=== PATIENT | female | born 1995 | race Caucasian/White ===

== ENCOUNTER 2019-11-24 10:05 | Emergency (ER) | payer OTHER, SELFPAY ==
[2019-11-24 10:13] VITALS: BP 126/71; PULSE 76; RESP 16; TEMP 36.7; O2SAT 98
--- NOTE | 2019-11-24 10:23 | W.ED.GENAD ---
Discharge Plan Disposition Patient Disposition: HOME Condition: Stable Discharge Details Chief Complaint: Orthopedic Clinical Impression: Left knee sprain Primary Care Provider: Ana Carranza ED Provider: Di Alva Home Meds and New Rx's Prescriptions: Continued citalopram 20 mg Tablet 20 mg PO DAILY RF: 0 trazodone 150 mg Tablet 150 mg PO HS RF: 0 medroxyprogesterone [Depo-Provera] 150 mg/mL Suspension IM RF: 0 Discharge Instructions Instructions: Knee Sprain (ED) Additional Instructions: Rest, ice and elevate your left knee as much as possible. Alternate tylenol and motrin as needed and directed for pain. Follow-up with your primary care doctor in 2 weeks for reevaluation if symptoms persist or worsen for consideration for physical therapy or MRI of your left knee. Return to the emergency department with any worsening or new concerning symptoms. Stand Alone Forms: Work Release Discharge Data Discharge Date/Time-TO BE ENTERED AT DEPARTURE: 11/24/19 11:06 Discharge Physician: Di Alva Medical Decision Making 23-year-old female presents with left posterior knee pain after hearing and feeling a pop in her left knee while doing jumping jacks yesterday. States she is here for evaluation and for a note stating she is cleared to return to light duty as she is in the [employer] and would like to return today. She has pain with range of motion, particularly left posterior knee. There is no ligamentous laxity. There is no evidence of trauma or cellulitis. She is neurovascular intact. Discussed with patient that history and presentation appears most consistent with knee sprain/strain. Patient was offered an x-ray but she declines. She was given a work note for light duty for the next 10 days. Advised on the importance of rest, ice, elevate and compression. Advised to follow-up with a primary care doctor for reevaluation and for consideration for physical therapy or MRI if symptoms persist or worsen. HPI General Mode of arrival: ambulatory. Date/Time Provider Initiated Documentation: 11/24/19 10:10. Limitations to Documentation: no limitations. Information obtained by: patient. History of Present Illness 23 year old F presents to the emergency department with the chief complaint of Left knee pain, described as mild, Quality is described as aching, and is localized to the left and lower extremity (knee). Patient reports no radiation. Patient started experiencing this day(s) (1) and it has been constant. Rest improves symptom(s), Movement worsens symptoms (walking, standing) . Patient notes no other symptoms.. Patient did receive the following treatments prior to arrival, NSAID Related Data Home Medications Medication Instructions Recorded Confirmed citalopram 20 mg PO DAILY 11/24/19 11/24/19 medroxyprogesterone [Depo-Provera] mg IM 11/24/19 trazodone 150 mg PO HS 11/24/19 11/24/19 Allergies Allergy/AdvReac Type Severity Reaction Status Date / Time No Known Allergies Allergy Unverified 11/24/19 10:17 General Stated Complaint: Orthopedic KELLEN: 4 Review of Systems All systems reviewed & are unremarkable except as noted in HPI and below Constitutional Constitutional: Reports as per HPI, Denies chills and Denies fever(s) Eyes Eyes: Denies blurry vision ENT Ears, Nose, Mouth, and Throat: Denies dizziness, Denies sore throat and Denies throat swelling Cardiovascular Cardiovascular: Denies chest pain and Denies dyspnea Respiratory Respiratory: Denies cough and Denies dyspnea Gastrointestinal Gastrointestinal: Denies abdominal pain, Denies diarrhea and Denies vomiting Genitourinary Genitourinary: Denies hematuria and Denies dysuria Musculoskeletal Musculoskeletal: Denies back pain and Denies numbness Integumentary/Breasts Skin/Breast: Denies lesions and Denies rash Neurologic Neurologic: Denies dizziness, Denies localized weakness and Denies numbness Allergic/Immunologic Allergic/Immunologic: Denies throat swelling REPLACED BY [facility] Social History Smoking/Tobacco Use Status: Current every day Tobacco Type: e-cigarettes Substance use type: does not use Exam Const General: cooperative, healthy appearing and no acute distress HENMD Head: normal to inspection Mouth: oral mucosae normal Eyes General: appearance normal, both eyes and all related structures Neck Neck: normal visual inspection Resp Effort & Inspection: normal respiratory effort and able to speak in complete sentences Cardio Rate: regular rate Skin General skin exam: no rashes or lesions noted Neuro General: patient alert, patient awake and patient oriented x3 Motor: muscle tone normal throughout Extrem Other: Tenderness to palpation left posterior knee and left medial knee. Negative anterior or posterior drawer test. Negative Nehal's test. No pain with valgus or varus stress. No edema, ecchymosis, erythema, crepitus or step-off noted. No tenderness palpation of left thigh or left lower leg. Left DP/PT pulses intact. Psych Appearance: grossly normal Affect: normal affect Course Vital Signs Vital signs: Vital Signs Temperature 98.1 F 11/24/19 10:13 Pulse 76 11/24/19 10:13 Respiratory Rate 16 11/24/19 10:13 Blood Pressure 126/71 11/24/19 10:13 Pulse Oximetry 98 11/24/19 10:13 Temperature 98.1 F 11/24/19 10:13 Temperature Source Skin 11/24/19 10:13 Pulse 76 11/24/19 10:13 Respiratory Rate 16 11/24/19 10:13 Respiratory Effort Non-Labored 11/24/19 10:13 Blood Pressure 126/71 11/24/19 10:13 Blood Pressure Position Sitting 11/24/19 10:13 Pulse Oximetry 98 11/24/19 10:13 Oxygen Delivery Method Room Air 11/24/19 10:13 Oxygen Flow Rate 0 11/24/19 10:13 Pain Level 7 11/24/19 10:13
[2019-11-24] MEDS: Acetaminophen 500 MG TAB 1000 MG PO (10:59)
== END 2019-11-24 11:06 | disposition home or self-care (01) ==
PROVIDERS: Emergency Provider Physician Assistant; PCP Internal Medicine
DX: S83.92XA Sprain of unspecified site of left knee, initial encounter (principal); X50.9XXA Other and unspecified overexertion or strenuous movements or postures, initial encounter; Y99.0 Civilian activity done for income or pay
CPT/HCPCS: 99282; 99283

== ENCOUNTER 2020-12-09 20:48 | Emergency (ER) | payer MEDICAID, SELFPAY ==
[2020-12-09 20:53] VITALS: BP 154/101; PULSE 101; RESP 16; TEMP 36.6; O2SAT 98
--- NOTE | 2020-12-09 21:07 | W.ED.GENAD ---
Discharge Plan Disposition Patient Disposition: HOME Condition: Stable Discharge Details Clinical Impression: Lumbago with sciatica Primary Care Provider: Ana Carranza ED Provider: Nancy Perez Home Meds and New Rx's Prescriptions: New gabapentin 100 mg capsule 100 mg PO DAILY 14 Days Qty: 14 RF: 0 No Action ketorolac 10 mg tablet 10 mg PO PRN PRNRF: 0 citalopram 20 mg Tablet 20 mg PO DAILY RF: 0 trazodone 150 mg Tablet 150 mg PO HS RF: 0 medroxyprogesterone [Depo-Provera] 150 mg/mL Suspension 150 mg IM Q3-4M RF: 0 Discharge Instructions Instructions: Lumbar Radiculopathy (ED), Lower Back Exercises (ED) Additional Instructions: Alternate ice and heat. Follow up with primary care provider in 3-5 days. Return to ED sooner if any worsening or concerns. Increase oral fluids. Please take Tylenol or Ibuprofen with food every 4-6 hours as needed for pain and swelling. Return to the ED for any loss of bowel or bladder control, feeling that he cannot pee or poop, numbness in your groin. Be careful taking the gabapentin with your other medications. If oversedation or if you become too sleepy please only take the gabapentin 3 other day. Stand Alone Forms: Work Release Referrals: Ana Carranza [Primary Care Provider] - Medical Decision Making 24-year-old female presents the ER with chief complaint of lumbar back pain with radiation bilaterally into her bilateral thighs. She states that she lifted a low seat approximately 3 weeks ago felt her back gave out and has had pain daily which is gradually worsened since then. She denies any loss of bowel or bladder control denies any constipation or urinary hesitancy. Denies any dysuria or problems urinating. She denies any vaginal discharge or bleeding or chance of . She states that she does take the Depo-Provera shot. She states that she is been taking Excedrin and naproxen at home on a daily basis for the pain. States that she was seen within the last week and a half in the ER and was given Toradol and a stent of prednisone which did little to nothing to help with symptoms. She report having an MRI at different facility approximately 2 years ago. At this time urinalysis is negative for UTI no leukocytes or nitrites. Negative bedside test. L-spine x-ray ordered to rule out bony pathology. Imaging protocol: XR of the lumbosacral spine. Views: 4 or 5 views. COMPARISON: No relevant prior studies available. FINDINGS: Bones/joints: There are 5 non rib-bearing lumbar type vertebra. No acute osseous finding, vertebral body heights are preserved. No spondylolisthesis. Intervertebral disc heights are preserved. Soft tissues: No focal abnormality, IMPRESSION: No acute finding. Thank you for allowing us to participate in the care of your patient. Dictated and Authenticated by: Cullen Burns MD Discussed home care and follow-up, strict return instructions with patient who verbalizes understanding. Discussed x-ray results. HPI General Mode of arrival: ambulatory. Date/Time Provider Initiated Documentation: 12/09/20 20:48. Limitations to Documentation: no limitations. Information obtained by: patient. HPI Narrative: 24-year-old female presents the ER with chief complaint of lumbar back pain with radiation bilaterally into her bilateral thighs. She states that she lifted a low seat approximately 3 weeks ago felt her back gave out and has had pain daily which is gradually worsened since then. She denies any loss of bowel or bladder control denies any constipation or urinary hesitancy. Denies any dysuria or problems urinating. She denies any vaginal discharge or bleeding or chance of . She states that she does take the Depo-Provera shot. She states that she is been taking Excedrin and naproxen at home on a daily basis for the pain. States that she was seen within the last week and a half in the ER and was given Toradol and a stent of prednisone which did little to nothing to help with symptoms. She report having an MRI at different facility approximately 2 years ago. Related Data Home Medications Medication Instructions Recorded Confirmed citalopram 20 mg PO DAILY 11/24/19 12/09/20 medroxyprogesterone [Depo-Provera] 150 mg IM Q3-4M 11/24/19 12/09/20 trazodone 150 mg PO HS 11/24/19 12/09/20 gabapentin 100 mg PO DAILY 14 Days #14 cap 12/09/20 ketorolac 10 mg PO PRN PRN 12/09/20 12/09/20 Previous Rx's Medication Instructions Recorded gabapentin 100 mg PO DAILY 14 Days #14 cap 12/09/20 Allergies Allergy/AdvReac Type Severity Reaction Status Date / Time No Known Allergies Allergy Unverified 12/09/20 20:57 General Stated Complaint: GenMedical KELLEN: 4 Review of Systems Narrative: Constitutional: Negative for weight loss, alert and oriented, well groomed, normal body habitus, appears comfortable. HEENT: Denies trauma, headaches, blurry vision, nasal discharge, sore throat, trouble swallowing. Chest: Denies chest pain, palpitations, irregular rhythm, hypertension. Respiratory: Denies Shortness of breath, cough, hemoptysis. GI: Denies abdominal pain, nausea, vomiting, diarrhea, constipation. : Denies dysuria, hematuria, flank pain, rectal bleeding. Neuro: Denies dizziness, blurry vision, weakness, syncope, headache or facial numbness. Hematologic: Denies easy bruising, intolerance to heat or cold, hair loss. [facility] Social History Smoking/Tobacco Use Status: Current every day Tobacco Type: e-cigarettes Smoking risk assessment performed?: Yes Substance use type: does not use Do you feel safe at home: Yes Do you feel safe in your relationship?: Yes Exam Narrative Exam Narrative: Constitutional: Alert and oriented x3. Appears stated age. Normal body habitus. Head: Normocephalic, no trauma. Eyes: Pupils PERRLA, Red reflex noted, EOM's intact. Eyelids symmetrical without lesions, discharge, or swelling. ENT: Bilateral TM's WNL, External ear normal to inspection, no mastoid TTP, swelling, or erythema, Nasal turbinates WNL, no nasal discharge. Normal dentition, Posterior pharynx WNL, no exudate. Chest: RRR, Normal S1, S2, distal pulses intact. Resp: Lungs clear to auscultation bilaterally, no wheezes, rales, or rhonchi. Musculoskeletal: Normal gait, 5/5 strength to all four extremities. Midline L-spine tenderness over L4-L5. Negative straight leg test. Intact sensation to the bilateral lower extremities and equal. Intact dorsal pedal flexion extension. Skin: No suspicious rashes or lesions. Capillary refill less than 2 sec. Neurologic: Cranial nerves II-XII intact. Alert and oriented x 3. DTR's intact. Hematologic/Lymphatic: No ecchymosis, no lymphadenopathy. Course Vital Signs Vital signs: Vital Signs Temperature 36.6 C 12/09/20 20:53 Pulse 101 H 12/09/20 20:53 Respiratory Rate 16 12/09/20 20:53 Blood Pressure 154/101 H 12/09/20 20:53 Pulse Oximetry 98 12/09/20 20:53 Temperature 36.6 C 12/09/20 20:53 Temperature Source Tympanic 12/09/20 20:53 Pulse 101 H 12/09/20 20:53 Respiratory Rate 16 12/09/20 20:53 Respiratory Effort Non-Labored 12/09/20 20:53 Blood Pressure 154/101 H 12/09/20 20:53 Blood Pressure Position Sitting 12/09/20 20:53 Pulse Oximetry 98 12/09/20 20:53 Oxygen Delivery Method Room Air 12/09/20 20:53 Oxygen Flow Rate 0 12/09/20 20:53 Pain Level 8 12/09/20 20:53
[2020-12-09 21:27] LABS: Bilirubin Negative (Negative); Blood Negative (Negative); Clarity Clear (Clear); Glucose Negative (Negative); Ketones Negative (Negative); Leukocyte Esterase Negative (Negative); Nitrite Negative (Negative); Urobilinogen 0.2 EU/dL (Up TO 0.2)
--- NOTE | 2020-12-09 21:29 | NUR.NOTE ---
Nursing Note: pt ambulatory to bathroom without assistance
--- NOTE | 2020-12-09 21:36 | DI.RAD_ITS ---
EXAM: XR LUMBAR SPINE COMPLETE CLINICAL HISTORY: Lumbar spine pain, TECHNIQUE: COMPARISON: No exams were available for comparison FINDINGS: Five views were obtained. The intervertebral disc spaces are well maintained. There is no evidence of spondylolysis or spondylolisthesis. There is no evidence of acute fracture or dislocation. IMPRESSION: Negative examination of the lumbosacral spine. RADIATION DOSE DELIVERED: Total DLP
[2020-12-09] MEDS: diazePAM 5 MG TAB PO (21:48)
[2020-12-09] MEDS: traMADol 50 MG TAB PO (21:48)
--- NOTE | 2020-12-09 21:49 | DI.VRAD_ITS ---
PROCEDURE INFORMATION: Exam: XR Lumbosacral Spine Exam date and time: 12/09/2020 9:37 PM Age: 24 years old Clinical indication: Low back pain; Patient HX: No trauma TECHNIQUE: Imaging protocol: XR of the lumbosacral spine. Views: 4 or 5 views. COMPARISON: No relevant prior studies available. FINDINGS: Bones/joints: There are 5 non rib-bearing lumbar type vertebra. No acute osseous finding, vertebral body heights are preserved. No spondylolisthesis. Intervertebral disc heights are preserved. Soft tissues: No focal abnormality, IMPRESSION: No acute finding. Dictated and Authenticated by: Cullen Burns MD. Ordering:LUIS CARLOS Cruz MD
[2020-12-09 22:20] VITALS: BP 144/86; PULSE 77; RESP 18; O2SAT 98
== END 2020-12-09 22:30 | disposition home or self-care (01) ==
PROVIDERS: Emergency Provider Registered Nurse Emergency; PCP Internal Medicine
DX: M54.42 Lumbago with sciatica, left side (principal); M54.41 Lumbago with sciatica, right side
CPT/HCPCS: 81025; 99284; 72110; 81003; 99283

== ENCOUNTER 2021-03-07 10:04 | Outpatient (CLI) | payer MEDICAID, SELFPAY ==
[2021-03-07 10:15] VITALS: BP 129/85; PULSE 68; RESP 18; TEMP 37; O2SAT 99
--- NOTE | 2021-03-07 11:00 | DI.RAD_ITS ---
Exam(s) XR PAIN CLINIC FLUORO JOINT IN EXAM: XR PAIN CLINIC FLUORO JOINT IN CLINICAL HISTORY: Dx: Greater Trochanteric Bursitis of Left Hip TECHNIQUE: 2D and realtime digital imaging was performed. COMPARISON: No exams were available for comparison FINDINGS: C-arm fluoroscopy was utilized by Dr. Navarro during reported trochanteric bursa injection. Hard copies s how injection adjacent to the greater trochanter of the femur on the left. IMPRESSION: RADIATION DOSE DELIVERED: ubaldo Hairston=13.4 mGy
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
[2021-03-07] MEDS: Bupivacaine 0.5% Pres-Free 10 ML VIAL IJ (11:11)
[2021-03-07] MEDS: methylPREDNISolone ACETATE 80 MG/ML VIAL IJ (11:11)
[2021-03-07] MEDS: Omnipaque 240 MG/ML 50 ML BTL IJ (11:11)
[2021-03-07 11:12] VITALS: BP 123/79; PULSE 57; RESP 18; O2SAT 97
== END 2021-03-07 10:05 | disposition home or self-care (01) ==
PROVIDERS: PCP Internal Medicine; Visit Provider Internal Medicine
DX: M70.62 Trochanteric bursitis, left hip (principal)
CPT/HCPCS: 20610; 77002; J1040; Q9967

== ENCOUNTER → 2022-02-01 02:12 | Outpatient (CLI) | payer OTHER, MEDICAID, SELFPAY ==
[2022-02-01 09:06] VITALS: BP 122/86; PULSE 75; RESP 20; TEMP 37.1; O2SAT 98
--- NOTE | 2022-02-01 09:15 | DI.US_ITS ---
Exam(s) US PAIN CLINIC NEEDLE GUIDANCE EXAM: IT BAND SYNDROME AFFECTING LT LOWER LEG, LT GLUTEUS MEDIUS TENDON COMPARISON: No exams were available for comparison TECHNIQUE: Ultrasound performed using standard protocol. FINDINGS: Sonography was provided for Dr. Langley during the performance of a gluteus medius muscle needling. Pl ease refer to the procedure report for complete details. DATA REPOSITORY:
[2022-02-01 09:42] VITALS: O2SAT 100
[2022-02-01] MEDS: Lidocaine 2% Pres-Free 2 ML VIAL IJ (10:03)
--- NOTE | 2022-02-02 11:24 | PDOC.PAIN ---
Pain Clinic Procedure Note Procedure Note Procedure Note: ULTRASOUND GUIDED LEFT GLUTEUS MEDIUS TENDON NEEDLING PROCEDURE Pre-Procedural Evaluation: Kaitlin Chapin has been referred to the Pain Management Center for an Ultrasound Guided left gluteus medius tendon needling procedure injection for a chief complaint of left lateral hip pain. Pre-procedure Pain Score: 7/10 Patient was interviewed and the medical record reviewed. There were no medical, pharmacologic, radiographic, or other structural contraindications to preforming an ultrasound guided injection. Risks and expected side effects as well as potential benefits of the procedure were reviewed. The patient consent form was signed and witnessed. Standard time-out procedure was performed. The use of direct ultrasound visualization of the needle (rather than a non-guided injection) was required to increase patient safety by excluding inadvertent intramuscular, intratendinous, or intraneural needle placement and minimizing bleeding by avoiding osteochondral or vascular injury from the needle. Additionally, the increased accuracy of placement may increase clinical effectiveness and will allow higher diagnostic specificity when evaluating effectiveness of this injection. Procedure Description: The patient was placed in the right lateral recumbant position and automated blood pressure cuff and pulse oximeter applied for monitoring during the procedure and recorded in the medical record. Pre-injection ultrasound scanning of the area of interest was performed using Pain US TRANSDUCER transducer, identifying relevant anatomy, landmarks, and neurovascular structures allowing for optimal needle path. The site was then prepared in the usual sterile fashion, using thorough Chlorhexadine preparation of the skin and sterile draping. The same ultrasound transducer was then passed into the sterile field using sterile probe cover and sterile ultrasound gel. The injection target was again visualized. Skin and subcutaneous tissues were anesthetized with 4 mL of 1% Lidocaine. A 22G [employer] Ultrasound 3.5 needle was placed under live ultrasound guidance, using an in-plane approach, to the target area. After visualization of the needle tip at the target area, 3 mL 2% Lidocaine after negative aspiration for blood. Ultrasound images were captured and stored for documentation purposes. Post-procedure Pain Score:4/10 Vital signs were stable throughout the procedure and were as recorded in the docflowsheet by the nursing staff. Follow up plans and appointments were discussed with the patient.Post procedure instruction was given as documented in nursing documentation and having met discharge criteria, they were discharged from the Pain Management Center. COMMENTS: He understands to stay off of the left leg as much as possible for the next 7 days. After that she will start gentle stretching and slowly get back into her previous activities. Luis Langley DO, MPH [facility]-Pain Management [facility]-Center for Pain Management
== END ==
PROVIDERS: PCP Internal Medicine; Visit Provider Preventive Medicine Occupational Medicine
DX: M25.552 Pain in left hip (principal)
CPT/HCPCS: 20611; 76942

== ENCOUNTER 2022-10-17 10:24 | Outpatient (CLI) | payer MEDICAID, SELFPAY ==
[2022-10-17 10:33] VITALS: BP 148/91; PULSE 69; RESP 20; TEMP 37; O2SAT 98
[2022-10-17 11:16] VITALS: PULSE 58; O2SAT 100
[2022-10-17] MEDS: Lidocaine 2% Pres-Free 5 ML VIAL IJ (11:18)
--- NOTE | 2022-10-17 12:15 | PDOC.PAIN ---
Date of service: 10/17/22 Time of Service: 11:00 Pain Clinic Procedure Note Procedure Note Procedure Note: ULTRASOUND GUIDED LEFT GLUTEUS MEDIUS TENDON NEEDLING INJECTIONS Pre-Procedural Evaluation: Kaitlin Chapin has been referred to the Pain Management Center for an Ultrasound Guided left Gluteus Tendon needing injection for a chief complaint of left hip area pain. Pre-procedure Pain Score: 6/10 Patient was interviewed and the medical record reviewed. There were no medical, pharmacologic, radiographic, or other structural contraindications to preforming an ultrasound guided injection. Risks and expected side effects as well as potential benefits of the procedure were reviewed. The patient consent form was signed and witnessed. Standard time-out procedure was performed. The use of direct ultrasound visualization of the needle (rather than a non-guided injection) was required to increase patient safety by excluding inadvertent intramuscular, intratendinous, or intraneural needle placement and minimizing bleeding by avoiding osteochondral or vascular injury from the needle. Additionally, the increased accuracy of placement may increase clinical effectiveness and will allow higher diagnostic specificity when evaluating effectiveness of this injection. Procedure Description: The patient was placed in the right lateral recumbant position and automated blood pressure cuff and pulse oximeter applied for monitoring during the procedure and recorded in the medical record. Pre-injection ultrasound scanning of the area of interest was performed using linear transducer, identifying relevant anatomy, landmarks, and neurovascular structures allowing for optimal needle path. The site was then prepared in the usual sterile fashion, using thorough Chlorhexadine preparation of the skin and sterile draping. The same ultrasound transducer was then passed into the sterile field using sterile probe cover and sterile ultrasound gel. The injection target was again visualized. Skin and subcutaneous tissues were anesthetized with 2 mL of 1% Lidocaine. A 22G 3.5 [employer] Ultrasound needle was placed under live ultrasound guidance, using an in-plane approach, to the target area. After visualization of the needle tip at the target area, 5 cc of 2% Lidocaine mL was delivered after negative aspiration for blood. I then made 20 passes with the needle through the left Gluteus medius tendon. Ultrasound images were captured and stored for documentation purposes. Post-procedure Pain Score:2/10 Vital signs were stable throughout the procedure and were as recorded in the docflowsheet by the nursing staff. Follow up plans and appointments were discussed with the patient.Post procedure instruction was given as documented in nursing documentation and having met discharge criteria, they were discharged from the Pain Management Center. COMMENTS: She will take it easy as directed for the next 7-10 days and avoid NSAIDs for the same time period. Luis Langley DO, MPH [facility]-Pain Management [facility]-Center for Pain Management
== END 2022-10-17 10:25 | disposition home or self-care (01) ==
LOC: PC 10:24
PROVIDERS: PCP Internal Medicine; Visit Provider Preventive Medicine Occupational Medicine
DX: M25.552 Pain in left hip (principal)
CPT/HCPCS: 20611

== ENCOUNTER 2023-10-07 17:57 | Emergency (ER) | payer SELFPAY ==
[2023-10-07] VITALS (39 sets, daily range): BP systolic 88–115; BP diastolic 47–93; PULSE 49–74; RESP 10–28; TEMP 36.6; O2SAT 96–99
--- NOTE | 2023-10-07 17:45 | RT.EKG_ITS ---
APPROVED REPORT Exam: Resting ECG Reason for Exam: chest pain Patient Location: E HR:59 bpm ECG Measurements Heart Rate 59 AXIS MD 152 P 25 QRSd 89 QRS 1 QT 395 T 51 QTc 393 Conclusion Sinus bradycardia...rate< 60 Narrow complex sinus bradycardia at a rate of 59. Left axis deviation no signs of LVH based on volta ge criteria. No ST segment abnormalities. No T wave inversions. No acute injury pattern. No prior for comparison.
--- NOTE | 2023-10-07 18:00 | DI.RAD_ITS ---
Exam(s) XR PORTABLE CHEST AP EXAM: XR PORTABLE CHEST AP CLINICAL HISTORY: Chest pain. TECHNIQUE: 2D digital imaging was performed. COMPARISON: No exams were available for comparison FINDINGS: Single AP portable view. Heart size is upper normal. The mediastinum is not widened. Lungs are clear. No infiltrates nor obvious pleural effusions. IMPRESSION: No acute pulmonary findings on this single AP portable view of the chest. DATA REPOSITORY: RADIATION DOSE DELIVERED:
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
[2023-10-07] MEDS: Ondansetron 4 MG/2 ML VIAL IVP (18:15)
[2023-10-07 18:23] LABS: Abs Immature Grans 0.03 10^3/uL (0.0-0.06); Absolute Basophil Count 0.05 10^3/uL (0.0-0.2); Absolute Eosinophil Count 0.11 10^3/uL (0.0-0.7); Absolute Lymphocyte Count 3.14 10^3/uL (1.2-3.4); Absolute Monocyte Count 0.46 10^3/uL (0.1-0.8); Basophils % 0.6; Eosinophils % 1.4; HCT 39.4 % (36.0-46.0); HGB 13.1 g/dL (11.2-15.7); Immature Grans % 0.4; Lymphocytes % 38.8; MCH 29.3 pg (27.0-33.0); MCHC 33.2 % (32.0-36.0); MCV 88 fL (80-95); MPV 9.4 fL (8.0-11.0); Monocytes % 5.7; Neutrophils % 53.1; Platelet Count 245 10^3/uL (130-400); RBC 4.47 10^6/uL (3.93-5.22); RDW 12.3 % (11.7-14.6); RDW-SD 39.6 fL; WBC 8.09 10^3/uL (4.4-10.8)
[2023-10-07 18:41] LABS: HCG Qual (Serum) Negative
[2023-10-07 18:45] LABS: Anion Gap 8.3 mmol/L (3-11); BUN 12 mg/dL (7-18); CO2 26.7 mmol/L (21.0-32.0); CREATININE 0.9 mg/dL (0.55-1.02); Calcium 9.1 mg/dL (8.5-10.1); Chloride 107 mmol/L (98-107); Glucose 100 mg/dL (74-106); Lipase 26 U/L (16-77); Potassium 3.7 mmol/L (3.5-5.1); Sodium 142 mmol/L (136-145); Troponin I < 50 ng/L (< or =60)
[2023-10-07 18:55] LABS: D-Dimer 192 ng/mlFEU (<500)
[2023-10-07] MEDS: Acetaminophen 500 MG TAB 1000 MG PO (21:09)
[2023-10-07] MEDS: Ibuprofen 600 MG TAB PO (21:09)
[2023-10-07 21:20] LABS: Troponin I < 50 ng/L (< or =60)
== END 2023-10-07 21:40 | disposition home or self-care (01) ==
PROVIDERS: Emergency Provider Emergency Medicine; PCP Internal Medicine
DX: R07.9 Chest pain, unspecified (principal); R00.1 Bradycardia, unspecified; E66.3 Overweight; E28.2 Polycystic ovarian syndrome; F17.290 Nicotine dependence, other tobacco product, uncomplicated; Z82.49 Family history of ischemic heart disease and other diseases of the circulatory system
CPT/HCPCS: 80048; 83690; 93005; 99285; 71045; 84484; 84703; 85025; 85379; 93010; 99284; J2405

== ENCOUNTER 2023-11-03 17:22 | Emergency (ER) | payer OTHER, SELFPAY ==
[2023-11-03 17:24] VITALS: BP 151/77; PULSE 80; RESP 18; TEMP 36.3; O2SAT 97
[2023-11-03] MEDS: Prochlorperazine 10 MG TAB PO (18:18)
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
== END 2023-11-03 21:26 | disposition home or self-care (01) ==
PROVIDERS: Emergency Provider Physician Assistant; PCP Internal Medicine
DX: S06.0X0A Concussion without loss of consciousness, initial encounter (principal); W50.0XXA Accidental hit or strike by another person, initial encounter; Y93.F9 Activity, other caregiving; Y92.89 Other specified places as the place of occurrence of the external cause; Y99.0 Civilian activity done for income or pay
CPT/HCPCS: 99283

== ENCOUNTER 2023-11-21 13:29 | Emergency (ER) | payer SELFPAY ==
[2023-11-21 13:38] VITALS: BP 167/104; PULSE 98; RESP 16; TEMP 36.5; O2SAT 97
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
[2023-11-21 15:15] VITALS: BP 124/88; PULSE 79; RESP 18; O2SAT 99
--- NOTE | 2023-11-22 13:07 | PDOC.MHCN_ITS ---
Date of service: 11/21/23 Time of Service: 02:40 PHQ-9 Over the last 2 weeks, how often have you been bothered by any of the following problems? 1. Little interest or pleasure in doing things: not at all 2. Feeling down, depressed, or hopeless: several days 3. Trouble falling or staying asleep, or sleeping too much: not at all 4. Feeling tired or having little energy: not at all 5. Poor appetite or overeating: not at all 6. Feeling bad about yourself - or that you are a failure or have let yourself and your family down: not at all 7. Trouble concentrating on things, such as reading the newspaper or watching television: not at all 8. Moving or speaking so slowly that other people could have noticed? - Or the opposite - being so fidgety or restless that you have been moving around a lot more than usual: not at all 9. Thoughts that you would be better off or of hurting yourself in some way: not at all Total score: 1 Source: Developed by Drs. Alex Little, Mallorie Cintron, Glenn Márquez and colleagues, with an educational jodee from [employer]. Suicide Severity Rate CSSRS Have you wished you were or wished you could go to sleep and not wake up?: No Have you actually had any thoughts of killing yourself?: No CSSRS2 Have you been thinking about how you might do this?: No Have you had these thoughts and had some intention of acting on them?: No Have you started to work out or worked out the details of how to kill yourself? Do you intend to carry out this plan?: No CSSRS3 Have you ever done anything, started to do anything or prepared to do anything to end your life?: No CSSRS4 Was this within the past three months?: No Screening Score Total Score: 0 Screening: Negative Mental Health Emergency Note Release [facility] release signed:: Yes Reason for Visit SI statement In the last 2 weeks has the pt presented for ES prior to today?: No Client Information Client is: New Well Housed: Yes Non Suicidal Self Injury Current: No History: No Safety Risk/Harm to Self or Others Current Ideation to Harm Self or Others: No Risk: Does risk to harm exist?: yes. Risk: Low Risk Duty to warn indicated: No Asssessment/Mental Status Appearance: Other Attitude: Cooperative and Friendly Behavior: Unremarkable Speech: Normal Affect: Cogruent with mood Mood: Anxious Thought process: Goal directed Hallucinations: No Delusions: No Attention: Unremarkable Perception: Not impaired Orientation: Fully orientated Memory: Intact Insight: Fair Judgement: Fair Neurovegetative Symptoms Sleep: No change Appetitie: No change Interests: No change Energy: No change Libido: Not applicable Substance Use: Other Drug Issues: Other Do you use nicotine?: Yes Have you used substances in the last 7 days?: No Additional Issues: Assaultive/Threatening Behavior: No Medical Concerns: No Client engaged in active self harm w/weapon: No Threatening to run away: No Child reported abuse/neglect: No Voluntarily presenting for services: Yes Domestic violence is a concern: No Extreme Psychosis or extreme behavior is present: No Impression Client presented as calm, direct, cooperative, and future focused. She was apologetic about her statement of wanting to drive her car into a tree.She is struggling with work and finances and needed to vent. [facility] [place] [facility] and [facility] Plan/Disposition Recommended Disposition: Therapy. Plan: referral for therapy and to attend all her appointments as she has been with [facility] and states she liked working with her therapist alot Person reported agreement to plan: Yes Reports/communication Outcome discussed with: ED/Personnel
== END 2023-11-21 16:38 | disposition home or self-care (01) ==
PROVIDERS: Emergency Provider Emergency Medicine; PCP Internal Medicine
DX: R45.851 Suicidal ideations (principal); F41.9 Anxiety disorder, unspecified; F32.A Depression, unspecified; Z59.89 Other problems related to housing and economic circumstances; F17.290 Nicotine dependence, other tobacco product, uncomplicated
CPT/HCPCS: 00123; 80307; 96127; 99284

== ENCOUNTER 2024-07-21 11:45 | Outpatient (CLI) | payer OTHER, SELFPAY ==
--- NOTE | 2024-07-21 11:24 | DI.RAD_ITS ---
Exam(s) XR LUMBAR SPINE AP, LAT EXAM: XR LUMBAR SPINE AP, LAT CLINICAL HISTORY: Mechanical LBP, M54.59; lumbar spondylosis, M47.816. TECHNIQUE: 2D digital imaging was performed. Three views. COMPARISON: CR,XR XR LUMBAR SPINE COMPLETE from 12/09/2020 FINDINGS: BONES: No fracture or destructive lesion. Vertebral body heights are maintained. No facet hypertro phy identified . DISKS: Intervertebral disc spaces are maintained. No significant degenerative changes. ALIGNMENT: Lumbar spinal alignment is within normal limits. SOFT TISSUE: Normal. IMPRESSION: Unremarkable radiographs of the lumbar spine. DATA REPOSITORY: RADIATION DOSE DELIVERED:
== END 2024-07-21 12:05 ==
PROVIDERS: PCP Internal Medicine; Visit Provider Anesthesiology Pain Medicine
DX: M47.816 Spondylosis without myelopathy or radiculopathy, lumbar region (principal)
CPT/HCPCS: 72100

== ENCOUNTER 2024-08-18 08:43 | Outpatient (CLI) | payer OTHER, SELFPAY ==
--- NOTE | 2024-08-18 06:00 | DI.RAD_ITS ---
Exam(s) XR PAIN CLINIC FLUORO JOINT IN EXAM: XR PAIN CLINIC FLUORO JOINT IN CLINICAL HISTORY: DX: Right Hip Pain. TECHNIQUE: Fluoroscopy was provided for the referring physician for guidance with performing pain cl inic injection procedure. COMPARISON: No exams were available for comparison FINDINGS: Please see procedure note for details. Fluoro time: 10.5 seconds RADIATION DOSE DELIVERED: ubaldo Hairston=1.91 mGy
[2024-08-18 08:58] VITALS: BP 136/100; PULSE 83; RESP 20; TEMP 37.1; O2SAT 98
--- NOTE | 2024-08-18 09:19 | PDOC.PAIN ---
Date of service: 08/18/24 Time of Service: 09:38 Pain Managment Procedure Note Procedure Note Procedure Note: Greater Trochanteric Bursa Injection of Steroid ? Location: Right Greater Trochanteric Bursa ? Pre-procedure Diagnosis: M25.551 Pain in right hip ? Post-procedure Diagnosis:? The same as above ? Sedation: none ? Estimated blood loss:? less than 2 cc ? Surgeon:? Aguilar Gomez MD ? Procedure Detail:? The procedure and potential risks were explained to the patient and informed written consent was obtained. The patient was escorted to the procedure room and placed in the supine position. Pillows were utilized for proper positioning and comfort.? Time out was performed in the procedure room with nursing staff confirming the patient's identity, procedure to be performed, allergies, and any blood thinning or anti-platelet medications. The skin overlying the right lateral hip was prepped with ChloraPrep. Sterile gloves were used, a face mask was worn, and new single dose vials of all medications were used with the top being swabbed with alcohol and given time to dry prior to withdrawal of medication. Under fluoroscopic AP projection, the greater trochanter was visualized.? 1% lidocaine was used to anesthetize the skin. A 22 gauge needle was advanced toward the greater trochanteric bursa. After reaching the greater trochanter,0.5ml Omnipaque injected confirming position.?? A mixture consisting of 4cc of 0.5% bupivacaine and 40mg of methylprednisolone was injected into the bursa. The needle was gently removed. ? The patient tolerated the procedure well, and was transported to the recovery area for observation and discharge instructions. Permanent images saved and recorded. PAIN: PRE-PROCEDURE 01/16 POST-PROCEDURE 09/18 Plan:? Follow up prn COMMENT:Consider right SI joint injection as well as spinal injections depending on how she proceeds with the above treatment.
[2024-08-18 09:26] VITALS: O2SAT 99
[2024-08-18 09:30] VITALS: O2SAT 99
[2024-08-18] MEDS: methylPREDNISolone ACETATE 40 MG/ML VIAL IJ (09:37)
[2024-08-18] MEDS: Omnipaque 240 MG/ML 50 ML BTL IJ (09:37)
[2024-08-18] MEDS: Nerve Block Tray 1 EACH MC (09:38)
[2024-08-18] MEDS: Bupivacaine 0.5% Pres-Free 10 ML VIAL IJ (09:38)
== END 2024-08-18 08:44 | disposition home or self-care (01) ==
LOC: PC 08:43
PROVIDERS: PCP Registered Nurse; Visit Provider Anesthesiology Pain Medicine
DX: M25.551 Pain in right hip (principal)
CPT/HCPCS: 00123; 20610; 77002; J0665; J1010; Q9967